=== PATIENT | female | born 2000 | race Caucasian/White ===

== ENCOUNTER 2022-09-17 14:50 | Outpatient (CLI) | payer OTHER, SELFPAY ==
[2022-09-17 22:13] LABS: Chloride* 102 mmol/L (96-114); Potassium* 4.7 mmol/L (3.6-5.1); Sodium* 139 mmol/L (135-149)
[2022-09-17 22:16] LABS: Carbon Dioxide* 29 mmol/L (20-32); Creatinine* 0.8 mg/dL (0.6-1.2); Estimated Glomerular Filt Rate 109 ml/min
[2022-09-17 22:17] LABS: Blood Urea Nitrogen* 12 mg/dL (5-24); Calcium* 9.8 mg/dL (8.7-10.8); Glucose* 84 mg/dL (60-115)
[2022-09-17 22:44] LABS: Vitamin D 25 Hydroxy* 44 ng/mL (30-80)
[2022-09-17 23:02] LABS: Vitamin B12* 251 pg/mL (243-894)
== END 2022-09-17 14:51 | disposition home or self-care (01) ==
PROVIDERS: PCP Physician Assistant Medical; Visit Provider Physician Assistant Medical
DX: R53.83 Other fatigue (principal)
CPT/HCPCS: 80048; 82306; 82607; 84443

== ENCOUNTER 2024-03-16 11:08 | Outpatient (CLI) | payer OTHER, SELFPAY ==
[2024-03-17 00:54] LABS: Chlamydia DNA Amplified* NOT DETECTED (No Detected); GC DNA Amplified* NOT DETECTED (No Detected)
== END 2024-03-16 11:09 | disposition home or self-care (01) ==
PROVIDERS: PCP Physician Assistant Medical; Visit Provider Nurse Practitioner Family
DX: Z11.3 Encounter for screening for infections with a predominantly sexual mode of transmission (principal); Z11.1 Encounter for screening for respiratory tuberculosis; Z13.220 Encounter for screening for lipoid disorders; R53.83 Other fatigue
CPT/HCPCS: 80061; 82728; 86480; 87491; 87591

== ENCOUNTER 2025-03-30 13:48 | Outpatient (CLI) | payer OTHER, SELFPAY | END 2025-03-30 13:49 | disposition home or self-care (01) | PROVIDERS: PCP Nurse Practitioner Family; Visit Provider Nurse Practitioner Family | DX: R19.7 Diarrhea, unspecified (principal); Z13.810 Encounter for screening for upper gastrointestinal disorder | CPT/HCPCS: 82784; 86231; 86258; 86364 ==

== ENCOUNTER 2025-04-02 11:00 | Outpatient (CLI) | payer OTHER, SELFPAY | END 2025-04-02 11:01 | disposition home or self-care (01) | LOC: NFLDREF 04-04 13:41 | PROVIDERS: PCP Nurse Practitioner Family; Referring Provider Nurse Practitioner Family; Visit Provider Nurse Practitioner Family | DX: Z11.1 Encounter for screening for respiratory tuberculosis (principal) | CPT/HCPCS: 86480 ==